=== PATIENT | female | born 1970 | race Caucasian/White ===

== ENCOUNTER 2017-12-26 09:33 | Emergency (ER) | payer OTHER ==
[~2017-12-26] VITALS: Ht 162.6 cm; Wt 102.1 kg
[2017-12-26] MEDS ORDERED: HUMALOG100 UNIT/1 (11:57)
[2017-12-26] MEDS ORDERED: CELLCEPT500 M2 PO (11:58)
[2017-12-26] MEDS ORDERED: HYZAAR 100-251 EACH PO (11:58)
[2017-12-26] MEDS ORDERED: TACROLIMUS1 M1 PO (11:58)
[2017-12-26] MEDS ORDERED: PREDNISONE5 M1 PO (11:59)
[2017-12-26] MEDS ORDERED: LABETALOL HCL300 M1 PO (11:59)
[2017-12-26] MEDS ORDERED: AMLODIPINE BESYL5 M1 PO (11:59)
[2017-12-26] MEDS ORDERED: SYNTHROID50 MCG PO (11:59)
[2017-12-26] MEDS ORDERED: VITAMIN D250000 UNIT PO (12:00)
--- NOTE | 2017-12-26 12:02 | ULTRASOUND REPORT ---
EXAMINATION: RIGHT LOWER EXTREMITY VENOUS DOPPLER ULTRASOUND CLINICAL INFORMATION: Right lower extremity swelling. Presumptive diagnosis of DVT. COMPARISON: None. TECHNIQUE: Doppler spectral analysis and color flow Doppler imaging was performed of the right lower extremity. Compression and augmentation maneuvers were performed. FINDINGS: The right common femoral vein, greater saphenous vein takeoff, femoral vein, and popliteal vein are normally compressible with normal augmentation responses and phasic changes seen with Doppler imaging. The midcalf peroneal and posterior tibial veins are patent as well. No popliteal cyst is seen. IMPRESSION: No evidence of deep venous thrombosis in the right lower extremity.
[2017-12-26 12:05] LABS: ABSOLUTE BASOPHIL COUNT 0 /CUMM (0.0-0.2); ABSOLUTE EOSINOPHIL COUNT 0.1 /CUMM (0.0-0.7); ABSOLUTE GRANULOCYTE CT 10.9 /CUMM (1.4-6.5); ABSOLUTE LYMPH COUNT 0.6 /CUMM (1.2-3.4); ABSOLUTE MONOCYTE COUNT 0.7 /CUMM (0.10-0.60); BASOPHIL % 0.1 % (0.0-2.0); EOSINOPHIL % 0.7 % (0-5); GRANULOCYTE % 88.9 % (42.2-75.2); HEMATOCRIT 26.6 % (37-47); MEAN CORPUSCULAR HGB 28.4 PG (27.0-31.0); MEAN CORPUSCULAR HGB CONC 32.8 G/DL (33.0-37.0); MEAN CORPUSCULAR VOLUME 86.5 FL (81.0-99.0); PLATELET COUNT 293 /CUMM (130-400); RBC DISTRIBUTION WIDTH 15.9 % (11.5-14.5); RED BLOOD CELL CT 3.08 /CUMM (4.20-5.40); WHITE BLOOD CELL COUNT 12.2 /CUMM (4.8-10.8)
--- NOTE | 2017-12-26 12:12 | ED GENERAL ADULT ---
History of Present Illness General Chief Complaint: General Adult Stated Complaint: SENT BY DR ROSS FOR ABNORMAL LABS Source: patient Exam Limitations: no limitations Vital Signs & Intake/Output Vital Signs & Intake/Output Vital Signs Date Time Temp Pulse Resp B/P B/P Pulse O2 O2 Flow FiO2 Mean Ox Delivery Rate 12/26 1641 98.6 86 20 145/72 98 Room Air 12/26 1429 97.7 89 20 132/64 99 Room Air 12/26 1155 97.6 89 20 134/67 99 Room Air 12/26 1115 97 Room Air Room Air 12/26 0941 97.5 90 18 106/61 98 Room Air Room Air Allergies Coded Allergies: metoclopramide (From REGLAN) (Intermediate, LOCK JAW 12/26/17) Reconcile Medications Amlodipine Besylate 5 MG TABLET 1 TAB PO DAILY HEART (Reported) Ergocalciferol (Vitamin D2) (Vitamin D2) 50,000 UNIT CAPSULE 1 CAP PO QW VITAMIN SUPPORT (Reported) Insulin Lispro (Humalog) (Unknown Strength) CARTRIDGE (Unknown Dose) TIDAC INS PUMP (Reported) Labetalol HCl 300 MG TABLET 2 TAB PO BID HEART (Reported) Levothyroxine Sodium (Synthroid) 50 MCG TABLET 1 TAB PO DAILY AC THYROID ( Reported) Losartan/Hydrochlorothiazide (Hyzaar 100-25 Tablet) 100 MG-25 MG TABLET 1 TAB PO DAILY HEART (Reported) Mycophenolate Mofetil (Cellcept) 500 MG TABLET 1 TAB PO BID TRANSPLANT ( Reported) Prednisone 5 MG TABLET 1 TAB PO BID STEROID (Reported) Tacrolimus 1 MG CAPSULE 3 CAP PO BID TRANSPLANT (Reported) Triage Note: PT TO ED FROM DR ROSS'S OFFICE FOR HIGH POTASSIUM OF 6.1, HAS HX OF R KIDNEY TRANSPLANT 2005. ALSO C/O RIGHT CALF PAIN, SENT IN TO R/O DVT. Triage Nurses Notes Reviewed? yes : No Patient currently breastfeeds: No HPI: 47-year-old female status post kidney transplant presents from case management associate office for right lower extremity cramping while walking an elevated potassium on outpatient. Outpatient potassium level 6.1. Patient states that for the last day she has had cramping the right lower extremity while ambulating. Negative for swelling. Negative for nausea vomiting constipation diarrhea altered mental status chest pain. Past History Travel History Traveled to [place] past 21 day No Medical History Any Pertinent Medical History? see below for history Neurological: NONE EENT: NONE Cardiovascular: hypertension Respiratory: pneumonia Gastrointestinal: NONE Hepatic: NONE Renal: NONE Musculoskeletal: NONE Psychiatric: NONE Endocrine: diabetes Blood Disorders: NONE Cancer(s): basal cell carcinoma, [employer] DELIVERY DRIVER/Reproductive: NONE Pneumonia Vaccine: 05/08/04 Surgical History Surgical History: Kidney transplant Psychosocial History Who do you live with Spouse What is your primary language Telugu Tobacco Use: Never used ETOH Use: denies use Illicit Drug Use: denies illicit drug use Family History Hx Contributory? No Review of Systems Review of Systems Constitutional: Reports: no symptoms, see HPI. EENTM: Reports: no symptoms. Respiratory: Reports: no symptoms. Cardiovascular: Reports: no symptoms. GI: Reports: no symptoms. Genitourinary: Reports: no symptoms. Musculoskeletal: Reports: no symptoms. Skin: Reports: no symptoms. Neurological/Psychological: Reports: no symptoms. Hematologic/Endocrine: Reports: no symptoms. Immunologic/Allergic: Reports: no symptoms. All Other Systems: Reviewed and Negative Physical Exam Physical Exam General Appearance: no apparent distress, comfortable Comments: Gen.: Well-nourished, well-developed, no acute respiratory distress. Head: Normocephalic, atraumatic. Eyes: Normal inspection bilaterally Ears: Normal inspection bilaterally Nose: Normal inspection Throat/mouth : Moist mucosa Neck: Supple, full range of motion, no goiter Heart: Regular rate and rhythm, no murmurs rubs or gallops Lungs: Clear to auscultation bilaterally with normal air entry Chest: Nontender Back: Normal range of motion Abdomen: Soft, nontender, nondistended, normal bowel sounds Extremities: Normal range of motion grossly, equal radial pulses, no cyanosis clubbing or edema, negative for tenderness elicited upon calf compression. Neurologic: Cranial nerves grossly intact, speech is clear Skin: warm and dry, negative for hot or cold changes between the lower extremities bilaterally. Healing surgical session right forehead is clean dry and intact and soft. Psychiatric: Calm, cooperative, no apparent delusions or hallucinations Core Measures ACS in differential dx? No CVA/TIA Diagnosis: No Sepsis Present: No Sepsis Focused Exam Completed? No Progress Differential Diagnoses I considered the following diagnoses in my evaluation of the patient: Lower extremity cramping versus DVT. Falsely elevated outpatient lab versus acute kidney injury versus graft compromise. Plan of Care: Orders Procedure Date/time Status Renal Dialysis Diet 12/26 D Active BASIC METABOLIC PANEL 12/26 1544 Complete Add-on Test (ER Only) 12/26 1222 Active CULTURE,URINE 12/26 1222 Active URINALYSIS 12/26 1222 Complete LACTIC ACID 12/26 1130 Complete D-DIMER 12/26 1119 Complete CBC WITHOUT DIFFERENTIAL 12/26 1119 Complete BASIC METABOLIC PANEL 12/26 1119 Complete EKG 12/26 0946 Active Current Medications Sig/Maninder Start time Last Medication Dose Stop Time Status Admin Sodium Polystyrene 60 ML ONCE ONE 12/26 1814 UNVr Sulfonate 12/26 181 (Kayexalate) Laboratory Tests 12/26/17 1702: Anion Gap 8, Estimated GFR 35 L, BUN/Creatinine Ratio 21.9, Glucose 140 H, Calcium 9.5 12/26/17 1309: Urine Color YEL, Urine Clarity HAZY H, Urine pH 6.0, Ur Specific [place] 1.025, Urine Protein TRACE H, Urine Ketones NEG, Urine Nitrite NEG, Urine Bilirubin NEG, Urine Urobilinogen 0.2, Ur Leukocyte Esterase MOD H, Ur Microscopic SEDIMENT EXAMINED, Urine WBC 15-25 H, Ur Epithelial Cells MANY H, Urine Bacteria MOD H, Urine Hemoglobin NEG, Urine Glucose NEG 12/26/17 1130: Anion Gap 8, Estimated GFR 30 L, BUN/Creatinine Ratio 20.6, Glucose 124 H, Lactic Acid 1.2, Calcium 9.5, D-Dimer High Sensitivty < 200, CBC w Diff MAN DIFF ORDERED, RBC 3.08 L, MCV 86.5, MCH 28.4, MCHC 32.8 L, RDW 15.9 H, MPV 8.0, Gran % 88.9 H, Lymphocytes % 4.9 L, Monocytes % 5.4, Eosinophils % 0.7, Basophils % 0.1, Absolute Granulocytes 10.9 H, Absolute Lymphocytes 0.6 L, Absolute Monocytes 0.7 H, Absolute Eosinophils 0.1, Absolute Basophils 0, Platelet Estimate VERIFIED BY SMEAR, Polychromasia 1+, Poikilocytosis 1+, Anisocytosis 1+, Ovalocytes 1+ Microbiology 12/26 1309 URINE ROUT: Urine Culture - RECD Initial ED EKG: normal axis, normal intervals, normal p-waves, normal QRS complex, normal sinus rhythm, no ST T wave changes, Negative for peaking t- waves. Comments: Transplant specialist, Dr Rodriguez Camejo at [facility]. 1 pm: spoke with Dr Ponce, with the transplant team. Baseline Cr 1.6. Fluid bolus, recheck BMP and will speak with the transplant team to decide disposition /plan. Spoke with Dr Ponce, whom advised Kayexalate and to follow-up next week with the transplant clinic. Departure Departure Disposition: HOME OR SELF CARE Condition: Stable Clinical Impression Primary Impression: Hyperkalemia Referrals: Annita OCAMPO,David Oliver (PCP/Family) Departure Forms: Customer Survey General Discharge Information Comments Please note that there might be incidental findings in your evaluation that are unrelated to the current emergency department visit. Please notify your primary care doctor about this emergency department visit in order to obtain and review all of the testing performed so that these incidental findings can be monitored as needed. If you had an x-ray performed, please understand that some fractures may not be seen on the initial set of x-rays. If your symptoms persist you might need a repeat set of x-rays to check for such a fracture. If you had a laceration evaluated, please understand that foreign bodies such as glass or wood may not be visible to the naked eye or on plain x-rays. If the wound becomes red, swollen, increasingly more painful or if there is any drainage from the wound, please have it reevaluated by a physician for the possibility of a retained foreign body. If you're unable to follow up as outlined in the discharge instructions please return to the emergency department. Critical Care Note Critical Care Note Critical Care Time: non-applicable
[2017-12-26 18:32] VITALS: BP 144/80
== END 2017-12-26 18:32 ==
LOC: ERH 09:33
PROVIDERS: Emergency Medicine
DX: E87.5 Hyperkalemia (principal); R25.2 Cramp and spasm; I10 Essential (primary) hypertension; E11.9 Type 2 diabetes mellitus without complications; Z79.4 Long term (current) use of insulin; Z94.0 Kidney transplant status
CPT/HCPCS: 81001; 87086; 93005; 93010; 96360